=== PATIENT | female | born 1985 | race Caucasian/White ===

== ENCOUNTER 2017-09-26 18:12 | Inpatient (IN) | payer MEDICAID ==
[2017-09-26] MEDS ORDERED: LR 1,000 ML IV PRN (18:39)
[2017-09-26] MEDS ORDERED: EPSOM SALT 454 GM TP PRN (18:39)
[2017-09-26] MEDS ORDERED: TERBUTALINE SULFATE 1 MG/ML VIAL IV PRN (18:39)
[2017-09-26] MEDS ORDERED: OLIVE OIL 118 ML BTL MISC PRN (18:39)
[2017-09-26] MEDS ORDERED: OXYTOCIN 20 UNIT in LR 1,000 ML IV PRN (18:39)
[2017-09-26] MEDS ORDERED: [UNRECOGNIZED DRUG - OTHER] IV SCH (21:00)
[2017-09-26] MEDS ORDERED: OXYTOCIN IV SCH (21:00)
[2017-09-26] MEDS ORDERED: OXYTOCIN/LR *LOW DOSE PROTOCOL IV SCH (21:00)
--- NOTE | 2017-09-26 21:15 | PDGENHP ---
History and Physical - Chief Complaint LOF since 1400 - History of Present Illness This is a [id number] with IUP@ 39-2wks that presents to L&D, from office, 12/13 PROM. She reports having a ?LOF @ 1100, but noticed a significant LOF @ 1400. She reports fluid being clear and odorless. She denies any regular contractions , or VB. She reports +FM. She denies any fever/chills/headaches/visual changes. History Information - Allergies/Home Medication List Allergies/Adverse Reactions: No Known Allergies Allergy (Unverified 09/26/17 18:37) Home Medications: Pnv95/Iron Fum/Folic Acid [ Vitamin Tablet] 1 each PO DAILY 09/26/17 [ Last Taken 2 Days Ago ~09/24/17] I have personally reviewed and updated: family history, medical history, social history, surgical history - Past Medical History no pertinent PMH - Surgical History Additional surgical history: jaw reconstruction 2009 (TMJ) - Family History Positive for: non-pertinent - Social History Smoking Status: Former smoker (stopped once +UPT) Tobacco Use: Cigarettes Alcohol Use: None Drug Use: None Review of Systems Review of Systems: ROS: 10pt was reviewed & negative except for what was stated in HPI & below Constitutional: Reports: no symptoms EENMT: Reports: no symptoms Cardiac: Reports: no symptoms Respiratory: Reports: no symptoms Gastrointestinal: Reports: no symptoms Genitourinary: Reports: no symptoms Muscolosketal: Reports: no symptoms Skin: Reports: no symptoms Neurological: Reports: no symptoms Hematologic/Lymphatic: Reports: no symptoms Immunologic/Allergy: Reports: no symptoms Physical Exam Physical Exam: stable Constitutional: no apparent distress, appears nourished, not in pain Eyes: PERRL Ears, Nose, Mouth, Throat: moist mucous membranes, hearing normal, ears appear normal Cardiovascular: regular rate and rhythym, no murmur, rub, or gallop Respiratory: no respiratory distress, no rales or rhonchi, clear to auscultation Gastrointestinal: soft, non-tender abdomen Genitourinary: no bladder fullness Skin: warm, normal color, no rashes or abrasions Musculoskeletal: full muscle strength, no muscle tenderness Neurologic: AAOx3 Psychiatric: interacting appropriately, not anxious Assessment & Plan Assessment: [id number] with IUP@39-2wks PROM- clear fluid @ 1400 GBS Negative cat 1 FHR tracing Plan: Admit to L&D low dose pitocin reassess PRN anticipate
[2017-09-26 21:23] LABS: % IMMATURE GRANULYOCYTES 0.9 % (0.0-1.1); ABSOLUTE IMMATURE GRANULOCYTES 0.14 10^3/uL (0.00-0.10); ADD DIFF? NO; ADD MORPH? NO; ADD SCAN? NO; ATYPICAL LYMPHOCYTE FLAG 0 (0-99); FRAGMENT RBC FLAG 0 (0-99); HEMATOCRIT 36.6 % (38.0-47.0); HEMOGLOBIN 12.4 g/dL (12.6-16.3); LEFT SHIFT FLG 0 (0-99); LIPEMIA HEMOLYSIS FLAG 90 (0-99); MEAN CELL HEMOGLOBIN 31.3 pg (27.9-34.1); MEAN CELL HEMOGLOBIN CONCENTR. 33.9 g/dL (32.4-36.7); MEAN CELL VOLUME 92.4 fL (81.5-99.8); MEAN PLATELET VOLUME 9.9 fL (8.7-11.7); PLATELET CLUMPS FLAG 0 (0-99); PLATELET COUNT 220 10^3/uL (150-400); RED BLOOD CELL COUNT 3.96 10^6/uL (4.18-5.33)
[2017-09-26] MEDS ORDERED: TERBUTALINE SULFATE 1 MG/ML VIAL ONE (21:41)
[2017-09-26] MEDS ORDERED: LIDOCAINE 1% 300 MG/30 ML SDV ONE (21:41)
[2017-09-26] MEDS ORDERED: OLIVE OIL 118 ML BTL ONE (21:41)
[2017-09-26] MEDS ORDERED: AMMONIA AROMATIC 1 EACH AMP IH ONE (21:41)
[2017-09-26] MEDS ORDERED: MISOPROSTOL 200 MCG TAB ONE (21:42)
[2017-09-26] MEDS ORDERED: OXYTOCIN 10 UNIT/ML VIAL ONE (21:42)
[2017-09-27] MEDS ORDERED: fentaNYL 100 MCG/2 ML INJ ONE (05:28)
[2017-09-27] MEDS ORDERED: PHENYLEPHRINE HCL 100 MCG/ML SYR ONE (05:28)
[2017-09-27] MEDS ORDERED: fentaNYL 2MCG/ML/BUP 0.1% RTU 100 ML BAG EP ONE (05:28)
[2017-09-27] MEDS ORDERED: BUPIVACAINE 0.25% 30 ML SDV ONE (05:28)
--- NOTE | 2017-09-27 06:42 | PREANESOB ---
Obstetric Pre-Anesthesia Info - General Info Proposed Procedure: Labor and delivery with pitocin. : 2 Para: 1 SIVAN: 10/01/17 Gestational Age: 39 week(s) and 2 day(s) - Info Monitors: External FHR Baseline (bpm): 125 FHR Pattern: Reassuring - Labor Status Cervical Dilation per last OB SVE: 4 Rupture of Membranes Time: 14:00 Pitocin: In Use Indications for Labor Analgesia: Augmentation of Labor, Pain Control Labor Epidural: Proposed Anesthesia ROS: Prior labor epidural. Prior general anesthesia for jaw surgery. Allergies/Adverse Reactions: Allergy/AdvReac Type Severity Reaction Status Date / Time No Known Allergies Allergy Unverified 09/26/17 18:37 Home Medications: Medication Instructions Recorded Pnv95/Iron Fum/Folic Acid 1 each PO DAILY 09/26/17 [ Vitamin Tablet] Visit Medications: Generic Name Dose Route Start Last Admin Trade Name Freq PRN Reason Stop Dose Admin Lactated Ringer's 1,000 mls @ 0 mls/hr 09/26/17 18:39 Lr IV 03/25/18 18:38 PRN PRN SEE PROTOCOL CONDITIONS Protocol Per Protocol Oxytocin 20 unit/ Lactated 1,002 mls @ 150 mls/hr 09/26/17 18:39 Ringer's IV PRN PRN Post- bleeding Oxytocin 30 unit/ Sodium 503 mls @ 0 mls/hr 09/26/17 21:00 09/26/17 21:06 Chloride IV 03/25/18 20:59 503 mls CONT MITZI Administration Protocol Per Protocol Ibuprofen 600 mg 09/26/17 18:39 Motrin PO 03/25/18 18:38 Q6HRS PRN post , inflammation Magnesium Sulfate 454 gm 09/26/17 18:39 Epsom Salt TP 03/25/18 18:38 Q1H PRN perineal discomfort [place] Oil 118 ml 09/26/17 18:39 Sweet Oil MISC 03/25/18 18:38 ONCE PRN perineal massage Terbutaline Sulfate 0.25 mg 09/26/17 18:39 Brethine IV 03/25/18 18:38 ONCE PRN Tachysystole Discontinued Medications Generic Name Dose Route Start Last Admin Trade Name Freq PRN Reason Stop Dose Admin Ammonia (Aromatic Spirit) Confirm 09/26/17 21:41 Ammonia Aromatic Administered 09/26/17 21:42 Dose 1 each IH .STK-MED ONE Bupivacaine HCl Confirm 09/27/17 05:28 Sensorcaine 0.25% Sdv Administered 09/27/17 05:29 Dose 30 ml .ROUTE .STK-MED ONE Ephedrine Sulfate Confirm 09/26/17 21:41 Ephedrine Sulfate Administered 09/26/17 21:42 Dose 50 mg .ROUTE .STK-MED ONE Fentanyl Confirm 09/27/17 05:28 Sublimaze Administered 09/27/17 05:29 Dose 100 mcg .ROUTE .STK-MED ONE Fentanyl/Bupivacaine HCl Confirm 09/27/17 05:28 Fentanyl/Bupivacaine/Ns 2 Mcg/Ml 0.1% (Premix Administered 09/27/17 05:29 Dose 100 ml EP .STK-MED ONE Oxytocin/Lactated Ringer's 500 mls @ 0 mls/hr 09/26/17 21:00 Pitocin 30 Units/Lr (Premix) IV 03/25/18 20:59 CONT MITZI Protocol Per Protocol Lidocaine HCl Confirm 09/26/17 21:41 Lidocaine Hcl 1% Administered 09/26/17 21:42 Dose 300 mg .ROUTE .STK-MED ONE Misoprostol Confirm 09/26/17 21:42 Cytotec Administered 09/26/17 21:43 Dose 1,000 mcg .ROUTE .STK-MED ONE [place] Oil Confirm 09/26/17 21:41 Sweet Oil Administered 09/26/17 21:42 Dose 118 ml .ROUTE .STK-MED ONE Oxytocin Confirm 09/26/17 21:42 Pitocin Administered 09/26/17 21:43 Dose 40 unit .ROUTE .STK-MED ONE Phenylephrine HCl Confirm 09/27/17 05:28 Neosynephrine Administered 09/27/17 05:29 Dose 1,000 mcg .ROUTE .STK-MED ONE Terbutaline Sulfate Confirm 09/26/17 21:41 Brethine Administered 09/26/17 21:42 Dose 1 mg .ROUTE .STK-MED ONE - Anesthesia History Response to Local Anesthetics: Normal Anesthesia & Operative History: No Prior Problems Family Anesthesia History: Negative - Social History Substance Use/Abuse: Denies - Vital Signs Blood Pressure: 114/79 Heart Rate: 86 Respiratory Rate: 16 Height/Weight (Nursing): Height 162.56 cm Weight 87.997 kg - Focused Exam Neck exam: FROM Mallampati Score: Class 2 Mouth exam: normal dental/mouth exam Pulmonary: no respiratory distress Cardiovascular: regular rate and rhythym Labs: 09/26/17 21:00 Patient ABO/Rh A POSITIVE 09/26/17 21:00 - Plan Anesthetic Plan: LEIF Consent Signed and on Chart: Yes Patient/Guardian Understands and Agrees to Plan: Yes Urgent/Emergent Case: Jesus Manuel adkins completed preop but documented later for safe timely pt care
--- NOTE | 2017-09-27 06:44 | POSTANESTH ---
Post Anesthetic Evaluation Cardiovascular Status: Normal, Stable, Similar to Pre-Op Cond (BP stable after phenylephrine x 1.) Respiratory Status: Normal, Stable, Similar to Pre-op Cond. Level of Consciousness/Mental Status: Can Participate in Eval, Alert and Oriented Pain Control: Adequate, Prn Tx Ordered Nausea/Vomiting Control: Adequate, Prn Tx Ordered Complications Possibly Related to Anesthesia: None Noted
[2017-09-27] MEDS ORDERED: PHENYLEPHRINE HCL 100 MCG/ML SYR IVP PRN (06:45)
[2017-09-27] MEDS ORDERED: ONDANSETRON 4 MG/2 ML VIAL IVP PRN (06:45)
--- NOTE | 2017-09-27 06:46 | PREANESOB ---
Obstetric Pre-Anesthesia Info - General Info Proposed Procedure: Labor and delivery with pitocin. : 2 Para: 1 SIVAN: 10/01/17 Gestational Age: 39 week(s) and 2 day(s) - Info Status: Full Term Monitors: External FHR Baseline (bpm): 125 FHR Pattern: Reassuring Anesthesia Allergies/Adverse Reactions: Allergy/AdvReac Type Severity Reaction Status Date / Time No Known Allergies Allergy Unverified 09/26/17 18:37 Home Medications: Medication Instructions Recorded Pnv95/Iron Fum/Folic Acid 1 each PO DAILY 09/26/17 [ Vitamin Tablet] Visit Medications: Generic Name Dose Route Start Last Admin Trade Name Freq PRN Reason Stop Dose Admin Lactated Ringer's 1,000 mls @ 0 mls/hr 09/26/17 18:39 Lr IV 03/25/18 18:38 PRN PRN SEE PROTOCOL CONDITIONS Protocol Per Protocol Oxytocin 20 unit/ Lactated 1,002 mls @ 150 mls/hr 09/26/17 18:39 Ringer's IV PRN PRN Post- bleeding Oxytocin 30 unit/ Sodium 503 mls @ 0 mls/hr 09/26/17 21:00 09/26/17 21:06 Chloride IV 03/25/18 20:59 503 mls CONT MITZI Administration Protocol Per Protocol Ibuprofen 600 mg 09/26/17 18:39 Motrin PO 03/25/18 18:38 Q6HRS PRN post , inflammation Magnesium Sulfate 454 gm 09/26/17 18:39 Epsom Salt TP 03/25/18 18:38 Q1H PRN perineal discomfort [place] Oil 118 ml 09/26/17 18:39 Sweet Oil MISC 03/25/18 18:38 ONCE PRN perineal massage Terbutaline Sulfate 0.25 mg 09/26/17 18:39 Brethine IV 03/25/18 18:38 ONCE PRN Tachysystole Discontinued Medications Generic Name Dose Route Start Last Admin Trade Name Freq PRN Reason Stop Dose Admin Ammonia (Aromatic Spirit) Confirm 09/26/17 21:41 Ammonia Aromatic Administered 09/26/17 21:42 Dose 1 each IH .STK-MED ONE Bupivacaine HCl Confirm 09/27/17 05:28 Sensorcaine 0.25% Sdv Administered 09/27/17 05:29 Dose 30 ml .ROUTE .STK-MED ONE Ephedrine Sulfate Confirm 09/26/17 21:41 Ephedrine Sulfate Administered 09/26/17 21:42 Dose 50 mg .ROUTE .STK-MED ONE Fentanyl Confirm 09/27/17 05:28 Sublimaze Administered 09/27/17 05:29 Dose 100 mcg .ROUTE .STK-MED ONE Fentanyl/Bupivacaine HCl Confirm 09/27/17 05:28 Fentanyl/Bupivacaine/Ns 2 Mcg/Ml 0.1% (Premix Administered 09/27/17 05:29 Dose 100 ml EP .STK-MED ONE Oxytocin/Lactated Ringer's 500 mls @ 0 mls/hr 09/26/17 21:00 Pitocin 30 Units/Lr (Premix) IV 03/25/18 20:59 CONT MITZI Protocol Per Protocol Lidocaine HCl Confirm 09/26/17 21:41 Lidocaine Hcl 1% Administered 09/26/17 21:42 Dose 300 mg .ROUTE .STK-MED ONE Misoprostol Confirm 09/26/17 21:42 Cytotec Administered 09/26/17 21:43 Dose 1,000 mcg .ROUTE .STK-MED ONE [place] Oil Confirm 09/26/17 21:41 Sweet Oil Administered 09/26/17 21:42 Dose 118 ml .ROUTE .STK-MED ONE Oxytocin Confirm 09/26/17 21:42 Pitocin Administered 09/26/17 21:43 Dose 40 unit .ROUTE .STK-MED ONE Phenylephrine HCl Confirm 09/27/17 05:28 Neosynephrine Administered 09/27/17 05:29 Dose 1,000 mcg .ROUTE .STK-MED ONE Terbutaline Sulfate Confirm 09/26/17 21:41 Brethine Administered 09/26/17 21:42 Dose 1 mg .ROUTE .STK-MED ONE - Vital Signs Height/Weight (Nursing): Height 162.56 cm Weight 87.997 kg Labs: 09/26/17 21:00 Patient ABO/Rh A POSITIVE 09/26/17 21:00
[2017-09-27] MEDS ORDERED: LR 500 ML IV SCH (07:00)
[2017-09-27] MEDS ORDERED: fentaNYL 2MCG/ML/BUP 0.1% RTU 100 ML EP SCH (07:00)
--- NOTE | 2017-09-27 08:18 | OBDEL ---
Info Type: Vaginal Presentation at Delivery: Vertex L&D Analgesia/Anesthesia Type: Epidural GBS+: No Intrapartum Medications: Generic Name Dose Route Start Last Admin Trade Name Ness PRN Reason Stop Dose Admin Oxytocin 30 unit/ Sodium 503 mls @ 0 mls/hr 09/26/17 21:00 09/26/17 21:06 Chloride IV 03/25/18 20:59 503 mls CONT MITZI Administration Protocol Per Protocol Indications for Delivery: SROM Vaginal Delivery - Delivery Provider Delivery Physician/CNM: Meghan Reddy - Labor and Delivery Onset of Contractions Date: 09/26/17 Onset of Contractions Time: 04:00 Onset of Contractions Type: Augmented Rupture of Membranes Date: 09/26/17 Rupture of Membranes Time: 14:00 Rupture of Membranes Type: Spontaneous Amniotic Fluid Color: Clear Dilation Complete Date: 09/27/17 Dilation Complete Time: 06:35 Placenta Delivery Date: 09/27/17 Placenta Delivery Time: 07:11 Total Hours of Labor: 27 Vaginal Sponge Count Correct: Yes Vaginal Needle Count Correct: Yes Vaginal Sweep Performed: Yes EBL: 100 Delivery Events: None - Medications Labor Augmentation/Induction Methods Used: Pitocin Data [place] Delivery Date: 09/27/17 Delivery Time: 07:04 SIVAN: 10/01/17 Gestational Age: 39 week(s) and 3 day(s) Sex of Infant: Male Score (1 Min): 8 Score (5 Min): 9 ICD10 Worksheet Patient Problems: Problems Problem Status Onset PROM (premature rupture of membranes) Acute (spontaneous vaginal delivery) Acute - ICD10 Problem Qualifiers (1) (spontaneous vaginal delivery) (2) PROM (premature rupture of membranes)
[2017-09-27] MEDS ORDERED: HYDROCORTISONE 0.5% CREAM TP PRN (08:19)
[2017-09-27] MEDS ORDERED: DOCUSATE SODIUM 100 MG CAP PO PRN (08:19)
[2017-09-27] MEDS ORDERED: ACETAMINOPHEN 325 MG TAB PO PRN (08:19)
[2017-09-27] MEDS ORDERED: SIMETHICONE 80 MG TAB CHEW PO PRN (08:19)
[2017-09-27] MEDS ORDERED: HYDROCODONE/APAP 5/325 TAB PO PRN (08:19)
[2017-09-27 12:28] VITALS: RESP 18
[2017-09-27] MEDS: IBUPROFEN 600 MG TAB PO PRN ×2 (13:39→19:51)
[2017-09-27 20:01] VITALS: O2SAT 96
[2017-09-28 08:33] VITALS: BP 119/85; PULSE 80; TEMP 97.6
--- NOTE | 2017-09-28 09:15 | OBPP ---
Progress Note Assessment/Plan: Assessment: 1) s/p PPD # 1 - pt is stable 2) Anemia - pt is asymptomatic Plan: Continue routine pp care Plan for d/c home if baby is discharged-needs a circ and f/u to check bili levels Instructions reviewed No Rx given Cont PNV, iron and colace Pelvic rest RTC in 4 and 6 weeks for pp visit 09/28/17 09:13 Subjective/ Course: 09/28/17 09:14 Pt seen and examined. Doing well with no complaints. Denies any cramping. Pt is OOB, donato reg diet, voiding and small BM x 1. Mod lochia. BF without difficulty. Wants to go home today. Objective: 09/26/17 21:00 Patient ABO/Rh A POSITIVE 09/26/17 21:00 Temp Pulse Resp BP Pulse Ox 36.4 C 80 18 119/85 H 96 09/28/17 08:00 09/28/17 08:00 09/28/17 08:00 09/28/17 08:00 09/28/17 08:00 Uterine Position/Fundal Height: Umbilicus -2 Uterine Tone: Firm Physical Exam - Physical Exam Respiratory: lungs clear, normal breath sounds Cardiac/Chest: regular rate, rhythm Abdomen: normal bowel sounds, non-tender, soft, flatus (+) Extremities: non-tender, normal inspection Skin: normal color, warm/dry Neuro/Psych: alert, normal mood/affect, oriented x 3
--- NOTE | 2017-09-28 09:17 | OBGCSDC ---
General Delivery Information - General Info : 2 Para: 2 Abortions: 0 Type: Vaginal L&D Analgesia/Anesthesia Type: Epidural Admission Date: 09/26/17 Labs: Patient ABO/Rh A POSITIVE 09/26/17 21:00 Hct 36.6 % (38.0-47.0) L 09/26/17 21:00 - Hospital Course : 09/28/17 09:14 Pt seen and examined. Doing well with no complaints. Denies any cramping. Pt is OOB, donato reg diet, voiding and small BM x 1. Mod lochia. BF without difficulty. Wants to go home today. Vaginal - Delivery Provider Delivery Physician/CNM: Meghan Reddy - Diagnosis Labor: Augmented Rupture of Membranes Type: Spontaneous Amniotic Fluid Color: Clear Delivery Events: None - Delivery EBL: 100 [place] Data [facility] Delivery Date: 09/27/17 Delivery Time: 07:04 SIVAN: 10/01/17 Gestational Age: 39 week(s) and 4 day(s) Sex of Infant: Male [place] Weight (gm): 3100 g Score (1 Min): 8 Score (5 Min): 9 Discharge Information - Discharge Information Condition: Good Instruction/Follow Up: Four Weeks, Six Weeks
== END 2017-09-28 14:30 | disposition home or self-care (01) | DRG 775 ==
LOC: FLD 18:12 → FOB 09-27 11:40
PROVIDERS: ADMIT Advanced Practice Midwife; ATTEND Advanced Practice Midwife
PROC: 10E0XZZ Delivery of Products of Conception, External Approach (ICD-10-PCS; principal; 2017-09-27)
DX: O42.02 Full-term premature rupture of membranes, onset of labor within 24 hours of rupture (principal); Z37.0 Single live birth; Z3A.39 39 weeks gestation of pregnancy
CPT/HCPCS: J2370; J3010; J3105